=== PATIENT | female | born 1970 | race Caucasian/White ===

== ENCOUNTER 2017-02-11 17:19 | Emergency (ER) | payer BC, OTHER ==
[~2017-02-11] VITALS: Ht 149.9 cm; Wt 74.8 kg
[~2017-02-11 17:19] MED LIST: CLARITIN10 MG PO; FLEXERIL PO; SINGULAIR 10 MG10 M1 PO; TEMAZEPAM7.5 MG PO; TIVICAY50 MG PO; TRUVADA 200 MG1 EACH PO
[2017-02-11] MEDS ORDERED: ZYRTEC10 M5 PO (18:39)
[2017-02-11] MEDS ORDERED: BENADRYL25 MG PO (18:40)
[2017-02-11] MEDS ORDERED: DOXYCYCLINE 10100 MG PO (18:57)
[2017-02-11] MEDS ORDERED: LAMISIL AT 1% C12 G1 TOP (18:57)
== END 2017-02-11 19:07 | disposition home or self-care (01) ==
LOC: ER 17:19
DX: L30.9 Dermatitis, unspecified (principal); F41.9 Anxiety disorder, unspecified; Z87.442 Personal history of urinary calculi; Z88.8 Allergy status to other drugs, medicaments and biological substances; Z88.5 Allergy status to narcotic agent

== ENCOUNTER → 2018-03-23 | Outpatient (CLI) | payer BC, OTHER ==
[~2018-03-23] VITALS: Ht 144.8 cm; Wt 81.6 kg
[~2018-03-23] MED LIST changes: +BENADRYL25 MG PO; +COZAAR 25 MG TA25 M1 PO; +DOXYCYCLINE 10100 MG PO; +FLOVENT HFA12 GM INH; +LAMISIL AT 1% C12 G1 TOP; +VENTOLIN HFA 1818 GM INH; +ZYRTEC10 M5 PO
--- NOTE | 2018-03-25 10:07 | PATH ---
[facility] [address] [place] [address] PATHOLOGY RPT PROCEDURE Name: MALACHIJED Room #: REG [facility] Addy.#: [id number] Admission: 03/23/18 Date of : 70 Discharge: Report #: [id number] Path Case #: [id number] [facility] Accession Number: [id number] . 01 Material submitted: . RANDOM BIOPSIES OF COLON R/O MICORSCOPIC COLITIS . 01 Clinical history: . Pre-OP DX: Blood in stool, diarrhea Post-OP DX: Internal hemorrhoid . 02 Diagnosis: Large intestinal mucosa, random colon, rule out microscopic colitis, endoscopic biopsy: - No significant diagnostic abnormalities present. - Negative for microscopic colitis. - Negative for dysplasia or malignancy. . (IUV:mml; 03/24/2018) QLM/03/24/2018 . 02 Comment: Sections of colon biopsy tissues show crypts at regular intervals and no increase in cellularity of lamina propria. There are no granulomas. The collagen layer underneath the epithelium is not thickened. There is no distortion in crypt architecture as well. There is no evidence of dysplasia. . (IUV:mml; 03/24/2018) . 02 Electronically signed: . Adriana Dupree MD, Pathologist NPI- [id number] . 01 Gross description: . Received in formalin labeled "Malachi Jed, random BX colon, rule out microscopic colitis," and additionally labeled on the requisition as "biopsies," are 4 segments of rosales soft tissue measuring 1.0 x 0.6 x 0.2 cm in aggregate dimensions and ranging from 0.3 to 0.4 cm in maximum dimension. The specimen is submitted entirely in cassette A1. (TSD; 03/23/2018) TOB/TOB . 02 Pathologist provided ICD-10: R19.5, R19.7 . 02 [place] [address] PATHOLOGY RPT PROCEDURE Name: JED PHAN Room #: REG CLI Andrew#: [id number] Admission: 03/23/18 Date of : 70 Discharge: Report #: [id number] Path Case #: [id number] Specimen Comment: A courtesy copy of this report has been sent to Specimen Comment: [phone], . Specimen Comment: Report sent to / DR JORDAN Specimen Comment: A duplicate report has been generated due to demographic updates. Performed at: [address] [facility] [address], [place], [place] [id number] MD Waqar Eugene MD Phone: [phone] Performed at: [address] [facility] [address] [id number] MD Adriana Dupree MD Phone: [phone]
--- NOTE | 2018-03-25 10:09 | P ---
[facility] [place] [address] PROCEDURE REPORT Name: JED PHAN [facility] [id number] Admission: 03/23/18 Attend Phys: Miguel Pagan Discharge: Date of : 70 Report #: [id number] THIS REPORT FOR: //name// CC: Miguel Bell MD DATE OF SERVICE: 03/23/2018 PROCEDURE PERFORMED: Colonoscopy with biopsies. HISTORY OF PRESENT ILLNESS: The patient is a 47-year-old female who presents today for her first colonoscopy. She has a family history of colon cancer in an aunt and an uncle. She apparently underwent genetic testing and was positive. I do not have a copy of these results that may increase her risk for colon cancer. She also apparently has had a Hemoccult positive stool. She denies any obvious bright red blood per rectum or melena. No history of anemia. She does report 2-month history of diarrhea. She did begin a new medication Cozaar around this time. She also has realized there are certain foods that cause diarrhea, which she typically avoids. She does complain of some abdominal bloating. She denies any recent antibiotics. DESCRIPTION OF PROCEDURE: The risks and benefits of the procedure were explained to the patient, those risks including but not limited to bleeding, perforation, the risk of sedation. She understood these risks and gave informed consent. Sedation was given using propofol per anesthesia. Next, a digital rectal exam was initially performed, which was normal. Next, using a standard Olympus colonoscope, the scope was placed in the patient's anus and advanced under direct vision to the cecum. The overall prep was excellent. The cecum and ileocecal valve were normal in appearance. The terminal ileum was intubated and normal in appearance. Ascending, transverse, descending and sigmoid colon were all normal. Random biopsies were obtained to rule out microscopic colitis. The rectal mucosa was normal. On retroflexion, a small nonbleeding internal hemorrhoid was noted. Close examination of the anal canal showed no evidence of external hemorrhoids. No evidence of anal fissure. The scope was then withdrawn and the procedure terminated. The patient tolerated the procedure well. IMPRESSION: 1. Small internal hemorrhoid, nonbleeding. 2. Otherwise, normal colonoscopy. RECOMMENDATIONS: 1. Await biopsy results. 2. We will need to review recent genetic testing data. 3. Hemoccult positive stool may be secondary to small internal hemorrhoid. [facility] [address] [place] [address] PROCEDURE REPORT Name: JED PHAN Room #: REG [facility].#: [id number] Admission: 03/23/18 Attend Phys: Miguel Pagan Discharge: Date of : 70 Report #: [id number] patient has no history of obvious bleeding or anemia. We will make further recommendations based on genetic testing results as far as followup colonoscopy. 4. Consider the possibility of Cozaar contributing to diarrhea when she started approximately the same time she began having symptoms. Thank you for allowing me to participate in her care. <ELECTRONICALLY SIGNED> By: Miguel Cheung MD 03/25/18 [id number] Miguel Cheung MD /nt
== END | disposition home or self-care (01) ==
LOC: GI 06:24
DX: K64.8 Other hemorrhoids (principal); F41.9 Anxiety disorder, unspecified; F32.9 Major depressive disorder, single episode, unspecified; I10 Essential (primary) hypertension; F17.290 Nicotine dependence, other tobacco product, uncomplicated; G47.00 Insomnia, unspecified; J45.909 Unspecified asthma, uncomplicated; G47.30 Sleep apnea, unspecified; Z80.0 Family history of malignant neoplasm of digestive organs; Z87.442 Personal history of urinary calculi; Z98.890 Other specified postprocedural states; Z88.8 Allergy status to other drugs, medicaments and biological substances; Z79.899 Other long term (current) drug therapy
CPT/HCPCS: 62110; 62900